=== PATIENT | male | born 1950 | race Caucasian/White ===

== ENCOUNTER 2017-09-21 19:32 | Emergency (ER) | payer OTHER, BC ==
[~2017-09-21] VITALS: Ht 182.9 cm; Wt 96.6 kg
[~2017-09-21 19:32] MED LIST: AMLO10TA PO; CARV12.5 PO; FLONAS NS; FLUO-387 PO; FURO-570 PO; GLIP10TA12 PO; HYDR-1095 PO; LISI40TA4 PO; OMEP20EC6 PO; PAX10 PO; PREG100C PO; ROSU40TA PO; SEVE800T PO; SUD30 PO; ZYL300 PO; [UNRECOGNIZED DRUG - CODE] PO
[2017-09-21 19:45] VITALS: BP 158/80
--- NOTE | 2017-09-21 19:50 | NUR ---
PATIENT AMBULATED TO ER BED 6.
--- NOTE | 2017-09-21 19:55 | NUR ---
PATIENT IS A 66 Y/O MALE WHO PRESENTS TO THE ED C/O CONGESTION. PT STATES, "I FEEL LIKE I CAN'T BREATHE AND I FEEL ALL CONGESTED." PT REPORTS BEING ADM 24 HOUR OBS. PT DENIES PAIN. PT REPORTS SOB, NO COUGH PRESENT IN ED, 99% O2 RA, LUNG SOUNDS CLEAR BL. PT DENIES CP, DENIES NAUSEA/VOMITING, REPORTS DIARRHEA. PT AAOX4, RR EVEN/UNLABORED. PT REPOSITIONED FOR COMFORT, BED IN LOWEST POSITION. ER MD DR. CAMPUZANO NOTIFIED. WILL CONTINUE TO MONITOR.
--- NOTE | 2017-09-21 20:00 | NUR ---
DR. CAMPUZANO EVALUATING PATIENT AT BEDSIDE.
[2017-09-21] MEDS ORDERED: methylPREDNISolone SS 125 MG in WATER STERILE 2 ML IM ONE (20:45)
[2017-09-21 21:05] VITALS: BP 141/81
--- NOTE | 2017-09-21 21:05 | NUR ---
Patient discharged with v/s stable. Written and verbal after care instructions given and explained. Patient alert, oriented and verbalized understanding of instructions. Ambulatory with steady gait. All questions addressed prior to discharge. ID band removed. Patient advised to follow up with PMD. Rx of PREDNISONE 50MG given. Patient educated on indication of medication including possible reaction and side effects. Opportunity to ask questions provided and answered.
== END 2017-09-21 21:05 | disposition home or self-care (01) ==
LOC: MED 19:32
DX: R09.81 Nasal congestion (principal); I10 Essential (primary) hypertension; I50.9 Heart failure, unspecified; E11.9 Type 2 diabetes mellitus without complications; Z79.899 Other long term (current) drug therapy; Z88.0 Allergy status to penicillin
CPT/HCPCS: 82948; 96372; 99283; J2930

== ENCOUNTER 2018-05-19 19:22 | Emergency (ER) | payer OTHER, BC ==
[~2018-05-19] VITALS: Ht 182.9 cm; Wt 93.0 kg
[~2018-05-19 19:22] MED LIST changes: -FLONAS NS; -PAX10 PO; -SUD30 PO
[2018-05-19 19:26] VITALS: BP 125/82
--- NOTE | 2018-05-19 19:26 | NUR ---
TO BED # 9 AMBULATORY
--- NOTE | 2018-05-19 19:35 | NUR ---
ASSUMED CARE OF PT AT THIS TIME. C/O SOB X 1 DAY. NO RESPIRATORY DISTRESS NOTED...PT SPEAKS IN FULL SENTENCES. PT DENIES CP. AAOX4 WITH EVEN AND STEADY GAIT; LUNGS DIMINISHED BUT CLEAR BL; HR EVEN AND REGULAR; PATIENT STATES PAIN OF 0/10; VSS; PATIENT POSITIONED FOR COMFORT; HOB ELEVATED; BEDRAILS UP X2; BED DOWN. ER MD MADE AWARE OF PT STATUS. WILL CONTINUE TO MONITOR.
--- NOTE | 2018-05-19 19:50 | NUR ---
Dr. Randle evaluating patient at bedside.
[2018-05-19 20:10] VITALS: BP 121/68
--- NOTE | 2018-05-19 20:10 | NUR ---
Patient discharged with v/s stable. Written and verbal after care instructions given and explained. Patient alert, oriented and verbalized understanding of instructions. Ambulatory with steady gait. All questions addressed prior to discharge. ID band removed. Patient advised to follow up with PMD. Rx of NASONEX AND BENADRYL given. Patient educated on indication of medication including possible reaction and side effects. Opportunity to ask questions provided and answered.
== END 2018-05-19 20:10 | disposition home or self-care (01) ==
LOC: MED 19:22
DX: I12.9 Hypertensive chronic kidney disease with stage 1 through stage 4 chronic kidney disease, or unspecified chronic kidney disease (principal); E09.22 Drug or chemical induced diabetes mellitus with diabetic chronic kidney disease; N18.9 Chronic kidney disease, unspecified; L97.919 Non-pressure chronic ulcer of unspecified part of right lower leg with unspecified severity; I42.9 Cardiomyopathy, unspecified; I50.9 Heart failure, unspecified; Z88.0 Allergy status to penicillin; Z99.2 Dependence on renal dialysis; Z79.899 Other long term (current) drug therapy; Z85.46 Personal history of malignant neoplasm of prostate
CPT/HCPCS: 99283